=== PATIENT | female | born 1960 | race Caucasian/White ===

== ENCOUNTER 2016-09-19 08:57 | Emergency (ER) | payer OTHER ==
[~2016-09-19] VITALS: Ht 167.6 cm; Wt 74.8 kg
[2016-09-19 09:15] VITALS: BP 116/74
--- NOTE | 2016-09-19 10:19 | ED THROAT/DENTAL COMPLAINT ---
History of Present Illness General Chief Complaint: Sore Throat, Dental Pain Stated Complaint: PT STATES MY THROAT IS CLOSING Source: patient, old records Exam Limitations: no limitations Vital Signs & Intake/Output Vital Signs & Intake/Output Vital Signs Date Time Temp Pulse Resp B/P B/P Pulse O2 O2 Flow FiO2 Mean Ox Delivery Rate 09/19 0915 98.0 60 18 116/74 100 Room Air Allergies Coded Allergies: MDX - Cefotetan (UNKNOWN 01/21/15) MDX - Cephalosporin (UNKNOWN 01/21/15) MDX - Codeine (UNKNOWN 01/21/15) MDX - Contrast Media, Gadolinium Re (Contrast Media, Gadolinium Related) ( UNKNOWN REACTION TO `IVP DYE' 01/21/15) MDX - Contrast Media, Iodine Relate (Contrast Media, Iodine Related) (UNKNOWN REACTION TO `IVP DYE' 01/21/15) MDX - Contrast Media, Iron Related (Contrast Media, Iron Related) (UNKNOWN REACTION TO `IVP DYE' 01/21/15) MDX - Contrast Media, Perfluorocarb (Contrast Media, Perfluorocarbon Rel) ( UNKNOWN REACTION TO `IVP DYE' 01/21/15) MDX - Penicillin (Penicillin) (UNKNOWN 01/21/15) Uncoded Allergies: CLASS: 28:08 - ANALGESICS AND ANTIPYRETICS (UNKNOWN 01/21/15) CLASS: 48:08 - ANTITUSSIVES (UNKNOWN 01/21/15) Reconcile Medications Azithromycin 250 MG TABLET 1 DP PO AD PHARYNGITIS 2 the first day followed by 1 for days 2-5 Azithromycin 250 MG TABLET 1 DP PO AD PHARYNGITIS 2 the first day followed by 1 for days 2-5 Dexamethasone 4 MG TABLET 4 MG PO ONCE PHARYNGITIS Triage Note: PT TO ED FOR "SWOLLEN THROAT" SINCE TUESDAY, SAW [facility] TWICE AND HAD A NEG STREP X 2. DENIES ANY PAIN, REPORTING SHE IS ABLE TO SWALLOW SOFT FOODS WITH MINIMAL DIFFICULT. NO STRIDOR, NO SOB, HAS NOT WORSENED SINCE TUESDAY. Triage Nurses Notes Reviewed? yes HPI: 56F PMH CHRONIC NECK PAIN PRESENTING WITH 1 WEEK OF SORE THROAT, HOARSENESS, DYSPHAGIA, AND ODYNOPHAGIA. DENIES FEVER, CHILLS, NAUSEA, VOMITING, HEADACHE, NECK STIFFNESS, EAR PAIN, HEARING CHANGES, CHEST PAIN, SOB, ABDOMINAL PAIN, DIARRHEA, DYSURIA. WENT TO URGENT CARE AND HAD TWO NEGATIVE RAPID STREP TESTS. FEELS WELL OTHER THAN HER THROAT. PAINFUL SWALLOWING TO ALL FOODS AND OCCASIONALLY WITH WATER. Past History Travel History Traveled to [place] past 21 day No Medical History Any Pertinent Medical History? see below for history Neurological: NONE EENT: NONE Cardiovascular: NONE Respiratory: NONE Gastrointestinal: NONE Hepatic: NONE Renal: NONE Musculoskeletal: CHRONIC PAIN Psychiatric: NONE Endocrine: NONE Blood Disorders: NONE Cancer(s): NONE Surgical History Surgical History: non-contributory Psychosocial History Tobacco Use: Never used ETOH Use: occasional use Illicit Drug Use: denies illicit drug use Family History Hx Contributory? No Review of Systems Review of Systems Constitutional: Reports: no symptoms. EENTM: Reports: see HPI. Respiratory: Reports: no symptoms. Cardiovascular: Reports: no symptoms. GI: Reports: no symptoms. Genitourinary: Reports: no symptoms. Musculoskeletal: Reports: no symptoms. Skin: Reports: no symptoms. Neurological/Psychological: Reports: no symptoms. Hematologic/Endocrine: Reports: no symptoms. Immunologic/Allergic: Reports: no symptoms. All Other Systems: Reviewed and Negative Physical Exam Physical Exam General Appearance: well developed/nourished, no apparent distress, alert, awake , HOARSE Head: atraumatic, normal appearance Eyes: Bilateral: normal appearance. Ears: Bilateral: canal normal, Tympanic normal. Nose: normal inspection Mouth/Throat: TONSILLAR AND PHARYNGEAL ERYTHEMA AND EDEMA WITHOUT EXUDATE Neck: BILATERAL ANTERIOR CERVICAL TENDER LYMPHADENOPATHY Core Measures ACS in differential dx? No Severe Sepsis Present: No Septic Shock Present: No Progress Differential Diagnosis: aspirated tooth, carious tooth, epiglottitis, Ludwigs angina, meningitis, odontogenic abscess, marie-tonsillar abscess, pharyngeal for. body, stomatitis/gingivitis, strep pharyngitis, tooth fracture Plan of Care: Current Medications Sig/Krystyna Start time Last Medication Dose Stop Time Status Admin Dexamethasone 4 MG ONCE ONE 09/19 1115 AC (Decadron) 09/19 1116 Departure Departure Time of Disposition: 1100 Disposition: HOME OR SELF CARE Condition: Stable Clinical Impression Primary Impression: Acute pharyngitis Referrals: RICK NORTON MD (PCP/Family) Additional Instructions: FOLLOW UP WITH YOUR PCP. GARGLE WITH SALT WATER. Departure Forms: Customer Survey General Discharge Information Prescriptions: Current Visit Scripts Azithromycin 1 DP PO AD #6 TAB 2 the first day followed by 1 for days 2-5 Azithromycin 1 DP PO AD #6 TAB 2 the first day followed by 1 for days 2-5 Dexamethasone 4 MG PO ONCE #1 TAB
--- NOTE | 2016-09-19 10:56 | CT SCAN REPORT ---
EXAMINATION: CT NECK WITHOUT CONTRAST CLINICAL INFORMATION: Pharyngitis for 7 days. Possible peritonsillar abscess. COMPARISON: None TECHNIQUE: Axial CT soft tissue neck is performed without intravenous contrast. Additional 2-D coronal and sagittal reformatted images are generated on the CT workstation. DLP: 511 mGy-cm FINDINGS: There is no soft tissue abscess or inflammatory stranding in the soft tissue planes. The vallecula, epiglottis, and aryepiglottic folds and subglottic airway appear normal. The nasopharynx is unremarkable. The parapharyngeal space appears normal. There is no adenopathy. Lung apices show no airspace consolidation. The parotid glands and submandibular glands appear normal in symmetric. Thyroid is unremarkable. The superior mediastinum shows no adenopathy. The sinuses appear well-aerated and clear. There is no mucosal thickening or polypoid mass or air-fluid level. The middle ears and mastoids show no air-fluid levels. There is been prior anterior cervical fusion C4-C6 with plate and screws. Prevertebral soft tissues unremarkable. IMPRESSION: 1. No soft tissue abscess or inflammatory stranding in the soft tissue planes. 2. Normal vallecula, epiglottis, and aryepiglottic folds. No adenopathy.
[2016-09-19] MEDS ORDERED: AZITHROMYCIN250 M1 PO ×2 (11:11→11:15)
[2016-09-19] MEDS ORDERED: DEXAMETHASONE4 M1 PO (11:24)
== END 2016-09-19 11:19 ==
LOC: ERH 08:57
DX: J02.9 Acute pharyngitis, unspecified (principal)

== ENCOUNTER 2017-06-01 22:00 | Emergency (ER) | payer OTHER ==
[~2017-06-01] VITALS: Ht 167.6 cm; Wt 72.6 kg
[~2017-06-01 22:00] MED LIST: AZITHROMYCIN250 M1 PO; DEXAMETHASONE4 M1 PO
--- NOTE | 2017-06-02 01:30 | ED NECK/BACK PAIN COMPLAINT ---
History of Present Illness General Chief Complaint: Low Back Pain/Injury Stated Complaint: BACK PAIN RADIATING INTO LEGS Source: patient Exam Limitations: no limitations Vital Signs & Intake/Output Vital Signs & Intake/Output Vital Signs Date Time Temp Pulse Resp B/P B/P Pulse O2 O2 Flow FiO2 Mean Ox Delivery Rate 06/02 0133 Room Air 06/02 0050 97.4 89 16 120/75 96 06/01 2219 97.0 78 18 125/83 96 Room Air ED Intake and Output 06/02 0000 06/01 1200 Intake Total Output Total Balance Patient 160 lb Weight Reconcile Medications Azithromycin 250 MG TABLET 1 DP PO AD PHARYNGITIS 2 the first day followed by 1 for days 2-5 Azithromycin 250 MG TABLET 1 DP PO AD PHARYNGITIS 2 the first day followed by 1 for days 2-5 Dexamethasone 4 MG TABLET 4 MG PO ONCE PHARYNGITIS Triage Note: PT TO TRIAGE C/O LOWER BAG PAIN RADIATING DOWN BOTH LEGS. CHRONIC IN NATURE PER PT WHO STATES SEES PAIN MANAGEMENT AND IS SUPPOSED TO GO FOR MRI BUT IS NOT SCHEDULED. PT STATES HAS TRIED MANY MEDICATIONS WITH NO EFFECT. AMB TO TRIAGE WITH SLOW BUT STEADY GAIT. Triage Nurses Notes Reviewed? yes Onset: Gradual Duration: worse persistent since (3 DAYS) Timing: recent history Quality/Severity: moderate Location: lumbar spine, paraspinous muscles Radiation: buttocks, upper legs, lower legs Method of Injury: prior injury Loss of Consciousness: no loss of consciousness Modifying Factors: immobilization, movement HPI: Patient is a 57-year-old female with history of chronic low back pain presenting to the emergency department with chief complaint of worsening low back pain over the past 3 days. She saw her pain management doctor last week and he wanted to schedule her for MRI but she has been unable to get in for a of this point. Patient denying any abdominal pain. No nausea vomiting fevers or chills chest pain or shortness of breath. Patient denies any large any weakness. She does report intermittent numbness and tingling going down both legs. Left leg is worse in the right leg. Denies any urinary incontinence or retention. (Adrian ELIZALDE,Margot) Allergies Coded Allergies: Cephalosporins (UNKNOWN 06/02/17) Gadolinium-Containing Contrast Medi (UNKNOWN 06/02/17) Iodinated Contrast- Oral and IV Dye (UNKNOWN 06/02/17) Penicillins (UNKNOWN 06/02/17) codeine (UNKNOWN 06/02/17) Uncoded Allergies: ANALGESICS AND ANTITUSSIVES (UNKNOWN 06/02/17) (Christal PILLAI,Nancy) Past History Travel History Traveled to [place] past 21 day No Medical History Any Pertinent Medical History? see below for history Neurological: NONE EENT: NONE Cardiovascular: NONE Respiratory: NONE Gastrointestinal: NONE Hepatic: NONE Renal: NONE Musculoskeletal: CHRONIC PAIN Psychiatric: NONE Endocrine: NONE Blood Disorders: NONE Cancer(s): NONE Surgical History Surgical History: non-contributory Psychosocial History What is your primary language Uzbek Tobacco Use: Current Daily Use Daily Tobacco Use Amount/Type: => 5 Cigarettes daily Family History Hx Contributory? No (Margot Stevenson) Review of Systems Review of Systems Constitutional: Reports: no symptoms. Comments Review of systems: See HPI, All other systems negative. Constitutional, no chills fever or weight loss HEENT: No visual changes no sore throat no congestion Cardiovascular: No chest pain ,palpitation Skin, no jaundice no rashes Respiratory: No dyspnea cough sputum or hemoptysis GI: No nausea no vomiting : No dysuria No hematuria Muscle skeletal: no neck pain, Neurologic: No headaches no confusion Psych: No stress anxiety or depression,. Heme/endocrine: No bruising no bleeding no polyuria or polydipsia Immunology: No splenectomy or history of AIDS (Margot Stevenson) Physical Exam Physical Exam General Appearance: well developed/nourished, no apparent distress, alert, awake , comfortable Neck: normal inspection, supple, full range of motion Comments: Well-developed well-nourished person in no acute distress HEENT: Atraumatic, normocephalic Neck: Normal inspection, no C-spine tenderness, full range of motion. Back: Tender to palpation over the lumbar paraspinal muscles as well as L4, L5. Limited range of motion with forward flexion and back extension secondary to pain. Negative MODIFIED STRIGHT leg raise bilaterally. Cardiovascular: Regular rate and rhythms Respiratory: Chest nontender. No respiratory distress.breath sounds clear to auscultation bilaterally Extremity: No edemA Neuro: Alert oriented x3, motor sensory normal, patellar reflexes are 2+ bilaterally. Skin: No appreciable rash on exposed skin, skin is warm and dry. Psych: Mood and affect is normal, memory and judgment is normal. Core Measures CVA/TIA Diagnosis: No (Adrian ELIZALDE,Margot) Progress Differential Diagnosis: cauda equina syn, herniated disc, myofascial strain, pyelo/UTI, sciatica Plan of Care: Orders Procedure Date/time Status CT LUMB SPINE WO IV CONTRAST 06/02 137 Active 2:55 AM PATIENT SIGNED OUT TO ME BY TONIO UPTON, PENDING CT SCAN LUMBAR SPINE. (Nancy Siegel MD) Diagnostic Imaging: Viewed by Me: CT Scan. Discussed w/RAD: CT Scan. Hand-Off Endorsed To: Nancy Siegel MD Endorsed Time: 148 Pending: CT Comments: She was neurovascularly intact on exam. Walks with steady gait. Patient will be signed out to Dr. Longo pending CT results. Patient medicated with IM Toradol. (Adrian ELIZALDE,Margot) Radiology Impression: PATIENT: RYAN CONNELLY PRESENT AGE: 57 PATIENT ACCOUNT NO: [id number] : 62 LOCATION: [facility] ORDERING PHYSICIAN: Margot ELIZALDE SERVICE DATE: 06/02/17 EXAM TYPE: CAT - CT LUMB SPINE WO IV CONTRAST EXAMINATION: CT LUMBAR SPINE WITHOUT CONTRAST CLINICAL INFORMATION: Worsening low back pain COMPARISON: 01/22/2015 TECHNIQUE: Helical non-contrast CT images were obtained through the lumbar spine and 1.25 and 2.5 mm axial reconstructions were reviewed along with sagittal and coronal MPRs. DLP: 638.74 mGy-cm FINDINGS: There is anatomic alignment of the lumbar vertebral bodies and posterior elements. Vertebral body heights are maintained. No evidence of acute fracture. Intervertebral disc spaces are relatively well-preserved. Endplate osteophytes are present most prominently at L1-L2. Tiny focus of calcification is again seen along the posterior margin of the L3-L4 disc. There is a slight disc protrusion at L4-L5 which does not appear to result in significant stenosis. There is scattered atherosclerotic calcification along the aorta and iliac arteries. IMPRESSION: No acute findings identified. Slight disc protrusion at L4-L5 which does not appear to result in significant stenosis. DICTATED BY: Minh Rudolph MD DATE/TIME DICTATED:258 PLANETARIUM TECHNICIAN:SB DATE/TIME TRANSCRIBED:06/02/17258 CONFIDENTIAL, DO NOT COPY WITHOUT APPROPRIATE AUTHORIZATION. <Electronically signed in Other Vendor System> SIGNED BY: Minh Rudolph MD 06/02/17 0310 (Nancy Siegel MD) Departure Departure Disposition: HOME OR SELF CARE Condition: Stable Clinical Impression Primary Impression: Chronic back pain Qualifiers: Back pain location: low back pain Back pain laterality: bilateral Sciatica presence: with sciatica Sciatica laterality: sciatica of left side Qualified Codes: M54.42 - Lumbago with sciatica, left side; G89.29 - Other chronic pain Referrals: Frederick Berry MD (PCP/Family) Additional Instructions: Follow-up with your pain management doctor call to make an appointment for the next 2-4 days.. Continue home pain medications as previously prescribed. Return for worsening symptoms or concerns. Avoid heavy lifting or sudden movements. Departure Forms: Customer Survey General Discharge Information (Margot Stevenson) Departure Time of Disposition: 333 PA/PATCH DRILLER Co-Sign Statement Statement: ED Attending supervision documentation- [X] I saw and evaluated the patient. I have also reviewed all the pertinent lab results and diagnostic results. I agree with the findings and the plan of care as documented in the PA's/PATCH DRILLER's documentation. [X] I have reviewed the ED Record and agree with the PA's/PATCH DRILLER's documentation. [] Additions or exceptions (if any) to the PAs/PATCH DRILLER's note and plan are summarized below: [] (Nancy Siegel MD)
--- NOTE | 2017-06-02 03:10 | CT SCAN REPORT ---
EXAMINATION: CT LUMBAR SPINE WITHOUT CONTRAST CLINICAL INFORMATION: Worsening low back pain COMPARISON: 01/22/2015 TECHNIQUE: Helical non-contrast CT images were obtained through the lumbar spine and 1.25 and 2.5 mm axial reconstructions were reviewed along with sagittal and coronal MPRs. DLP: 638.74 mGy-cm FINDINGS: There is anatomic alignment of the lumbar vertebral bodies and posterior elements. Vertebral body heights are maintained. No evidence of acute fracture. Intervertebral disc spaces are relatively well-preserved. Endplate osteophytes are present most prominently at L1-L2. Tiny focus of calcification is again seen along the posterior margin of the L3-L4 disc. There is a slight disc protrusion at L4-L5 which does not appear to result in significant stenosis. There is scattered atherosclerotic calcification along the aorta and iliac arteries. IMPRESSION: No acute findings identified. Slight disc protrusion at L4-L5 which does not appear to result in significant stenosis.
[2017-06-02 03:37] VITALS: BP 118/80
== END 2017-06-02 03:38 ==
LOC: ERH 22:00
DX: M54.5 Low back pain (principal)
CPT/HCPCS: J1885